=== PATIENT | male | born 1950 | race Caucasian/White ===

== ENCOUNTER 2020-05-31 01:33 | Outpatient (CLI) | payer BC, SELFPAY ==
[2020-05-31 19:24] LABS: SARS-CoV-2 RNA PCR Negative
== END 2020-05-31 01:34 | disposition home or self-care (01) ==
LOC: ANHCOVIDDT 01:33
PROVIDERS: PCP Physician Assistant; Visit Provider Urology
DX: Z01.812 Encounter for preprocedural laboratory examination (principal); Z20.828 Contact with and (suspected) exposure to other viral communicable diseases
CPT/HCPCS: 87635; C9803; U0003

== ENCOUNTER 2020-06-02 00:48 | Day surgery (SDC) | payer BC, SELFPAY ==
--- NOTE | 2020-05-30 08:04 | P.HP_ITS ---
History of Present Illness History of Present Illness Consent: Risks, benefits, and alternatives have been discussed and questions answered. Patient agrees to proceed with procedure. Chief complaint: prostate CA Narrative: Sandoval Ching is a 69 year old male with clinically localize adenocarcinoma of prostate, scheduled for definitive pelvic IMRT. He's opted for placement of SpaceOAR to minimize risk of rectal irritation. PSA: 8.6. Referred by Dr. Kurt Sullivan. Review of Systems Cardiovascular: Cardiovascular: Denies chest pain, Denies lightheadedness, Denies palpitations and Denies dyspnea Respiratory: Respiratory: Denies dyspnea Gastrointestinal: Gastrointestinal: Denies diarrhea, Denies nausea and Denies vomiting Genitourinary: Genitourinary: Denies hematuria and Denies dysuria Endocrine: Endocrine: Denies palpitations Exam Const: General: no acute distress Resp: Effort & Inspection: normal respiratory effort GI: Inspection: non-distended GI Palp: No abdominal tenderness and No Gua rding due to palpation present (GI) Auscultation: normal bowel sounds Assessment and Plan Assessment and plan (1) Prostate cancer: Code(s): C61 - Malignant neoplasm of prostate Status: Acute Assessment and Plan: * Transrectal ultrasound with transperineal placement of SpaceOAR. Pt. aware of risks of this procedure including, but not limited to, rectal injury, urinary tract infection with possible sepsis or septic shock, hematuria and inability to deliver the SpaceOAR. He also aware there is no alternative procedure to accomplish the same ends at this time.
[2020-05-31 12:28] VITALS: BMI 25.7
--- NOTE | 2020-06-02 06:50 | WPDHPUPDATE1 ---
History and Physical Update Update Date/Time: 06/02/20 06:50 History and Physical has been reviewed, including an updated exam of the patient. There are NO changes in the patient's condition. Risks, benefits, and alternatives have been discussed and questions answered. Patient agrees to proceed with procedure.
--- NOTE | 2020-06-02 11:14 | WPDANESEPPF ---
Anes - Initial Pre Proc Eval Procedure: Operation Date: 06/02/20 12:45 Proposed Procedures p Insertion SpaceOAR Hydrogel System - Mars Paz MD Date/Time: 06/02/20 11:14 Surgeon: Mars Paz MD Pre Op Diagnosis: prostate CA Patient Data Age: 69 Gender: M Height: 6 ft 2 in Weight: 90.9 kg Allergies Allergy/AdvReac Type Severity Reaction Status Date / Time Penicillins AdvReac Hives Verified 05/31/20 12:15 Home Medications Medication Instructions Recorded Confirmed Type ascorbic acid (vitamin C) [Vitamin 1,000 mg PO DAILY 05/31/20 05/31/20 History C] aspirin 81 mg PO DAILY 05/31/20 05/31/20 History atorvastatin 80 mg PO DAILY 05/31/20 05/31/20 History cholecalciferol (vitamin D3) 50 mcg PO DAILY 05/31/20 05/31/20 History ezetimibe 10 mg PO DAILY 05/31/20 05/31/20 History lisinopril 40 mg PO DAILY 05/31/20 05/31/20 History metformin 500 mg PO HS 05/31/20 05/31/20 History metoprolol succinate 50 mg PO HS 05/31/20 05/31/20 History omeprazole 20 mg PO DAILY PRN 05/31/20 05/31/20 History Patient hx anesthesia problems: none Family hx anesthesia problems: none PMFSH Past Medical History Medical History CAD (coronary artery disease) Diabetes Hyperlipidemia Hypertension Prostate cancer Surgical History Surgical History Stented coronary artery Social History Social History Smoking status: Current some day smoker Tobacco type: cigars Additional smoking assessment comments: STATES COUPLE CIGARS/WEEK FOR PAST 3YRS Alcohol intake: current Drinks per week: 12 Alcohol use details: BEERS ON THE WEEK END Substance use: never Living arrangements: with family Spiritual care concerns: No Anes - Eval Final PreProcedure Day of Procedure 06/02/20 11:14 Patient weight: overweight Heart: regular rate and rhythm Lungs: decreased breath sounds Airway: Mallampati scale class II Neurological: alert and oriented Last oral intake: >/= 8 hours ASA classification: III Emergent: no Anesthetic plan: proceed Anesthesia type and monitoring: general GIVS and standard monitoring Informed Consent: The patient's anesthetic plan and its attendant risks and benefits were discussed with the patient/family/POA. Questions were solicited and answers provided to the satisfaction of the patient/family/POA.
[2020-06-02] MEDS: LACTATED RINGERS 1,000 ML 30 ML IV CONT (11:51)
[2020-06-02 11:57] LABS: Glucose Point of Care 119 (65-105)
[2020-06-02 12:09] VITALS: BP 159/83; PULSE 72; RESP 18; TEMP 36.3; O2SAT 98
[2020-06-02 12:11] LABS: Anion Gap 10 mmol/L (8-16); Blood Urea Nitrogen 15 mg/dL (9-20); Calcium 9.5 mg/dL (8.4-10.2); Carbon Dioxide 26 mmol/L (22-30); Chloride 105 mmol/L (98-107); Estimated CRCL calculation 72 ml/min; Estimated Glomerular Filt Rate > 60; Glucose 134 mg/dL (75-110); Potassium 3.8 mmol/L (3.4-5.0); Sodium 141 mmol/L (137-145)
[2020-06-02] MEDS: levoFLOXacin 500 MG/D5W 100 ML 500 MG/100 ML BAG 100 MG IVPB (12:47)
[2020-06-02 13:09] VITALS: BP 159/90; PULSE 71; RESP 14; O2SAT 98
--- NOTE | 2020-06-02 13:16 | P.OP_ITS ---
Procedure Note - Detailed Date of procedure: 06/02/20 Pre-op diagnosis: prostate CA Post-op diagnosis: same Procedure performed: Placement of SpaceOAR Description of procedure: This patient has been diagnosed with prostate cancer. Patient has met with a radiation oncologist who has prescribed a course of radiation for treatment of the malignancy. Please refer to the Radiation Oncologist's note for radiation method, dose, number of fractions. After discussing with the radiation oncologist and the patient, it has been agreed upon to proceed with SpaceOAR placement. The purpose of SpaceOAR is to reduce rectal irradiation during radiation therapy by placing an absorbable polyethylene glycol (PEG) hydrogel (SpaceOAR) into perirectal fat space, thereby pushing the rectum away from the prostate. Prior to the procedure, a timeout was performed confirming the patient's identity and planned the procedure. Anesthesia was induced without complication. Antibiotics were administered prophylactically, and the patient completed an enema at home prior to the procedure. The patient was positioned in the dorsal lithotomy position. A transrectal ultrasound probe was inserted per rectum with clear visualization of the prostatic base and apex. SpaceOAR hydrogel was prepared as described in the automation technician?s 'Instructions For Use'. Under transrectal ultrasound guidance, a 15 cm 18G needle was inserted, transperineal, through the rectourethralis muscle and the needle tip advanced into the perirectal fat posterior to the prostate. The needle position, and downward bevel, were confirmed in both sagittal and axial carcamo. 3-5cc of Sterile Saline was used to hydro-dissect the space between the Denonvilliers? fascia and anterior rectal wall. Aspiration did not yield any bleeding. With the needle tip at mid gland, the axial field was viewed to confirm the needle was not in the rectal wall -- movement of the needle tip without corresponding movement of the rectal wall confirmed perirectal placement. The assembled SpaceOAR delivery system was then attached to the 18G needle. Under ultrasound guidance in the sagittal plane, a smooth, continuous injection technique was used to dispense all 10cc of the SpaceOAR hydrogel into the space between the prostate and rectum. Optimal visualization of the needle during hydrogel administration was maintained at all times. An axial measurement of the space between the prostate (mid gland) and rectum immediately post-SpaceOAR injection was noted and measured [90mm]. No suspected penetration or compromise of the rectal wall occurred. Anesthesia: GLMA Surgeon: Mars Paz MD Estimated blood loss (mL): 0 Drains: No Packing: No Pathology: none sent Complications: No immediate complications Condition: stable Disposition: PACU
[2020-06-02 13:23] LABS: Glucose Point of Care 117 (65-105)
[2020-06-02 13:39] VITALS: BP 150/88; PULSE 60; RESP 14
== END 2020-06-02 13:55 | disposition home or self-care (01) ==
PROVIDERS: Anesthesiology; PCP Internal Medicine; Visit Provider Urology
PROC: (CPT 55874; principal; 2020-06-02 12:45)
DX: C61 Malignant neoplasm of prostate (principal); I10 Essential (primary) hypertension; I25.10 Atherosclerotic heart disease of native coronary artery without angina pectoris; E78.5 Hyperlipidemia, unspecified; E11.9 Type 2 diabetes mellitus without complications; Z95.5 Presence of coronary angioplasty implant and graft; F17.290 Nicotine dependence, other tobacco product, uncomplicated; Z79.82 Long term (current) use of aspirin; Z79.84 Long term (current) use of oral hypoglycemic drugs
CPT/HCPCS: 55874; 36415; 80048; A9270; C1889; J1956; J2704; J7120